=== PATIENT | male | born 1960 | race Caucasian/White ===

== ENCOUNTER 2022-09-10 16:18 | Emergency (ER) | payer OTHER ==
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
[2022-09-10 17:44] VITALS: RESP 20
[2022-09-10] MEDS ORDERED: MORPHINE SULFATE 4 MG/ML SYRINGE IM STA (18:55)
[2022-09-10] MEDS ORDERED: ACET/COD 300 MG/30 MG STARTER PACK 6 TAB BTL PO STA (19:17)
[2022-09-10 19:56] VITALS: BP 149/99; PULSE 72; TEMP 98.9
== END 2022-09-10 19:49 | disposition home or self-care (01) ==
LOC: EC 16:18
DX: T20.20XA Burn of second degree of head, face, and neck, unspecified site, initial encounter (principal); T31.0 Burns involving less than 10% of body surface; E11.9 Type 2 diabetes mellitus without complications; X13.1XXA Other contact with steam and other hot vapors, initial encounter
CPT/HCPCS: 99283; 96372; 16020; J2270